=== PATIENT | female | born 1975 | race Caucasian/White ===

== ENCOUNTER → 2016-11-03 | Outpatient (CLI) | payer BC ==
[~2016-11-03] MED LIST: CALCTAB5 PO; IBUP600T44 PO; MAGNESIUM PO; PRCUNK PO; PRENTAB26 PO
--- NOTE | 2016-11-04 13:36 | MAMMOGRAPHY REPORT ---
BILATERAL DIGITAL SCREENING MAMMOGRAM TOMOSYNTHESIS WITH CAD: 11/03/2016 CLINICAL HISTORY: Routine screening. Patient has no complaints. TECHNIQUE: Breast tomosynthesis in addition to standard 2D mammography was performed. Current study was also evaluated with a Computer Aided Detection (CAD) system. COMPARISON: Comparison is made to exams dated: 10/30/2015 mammogram, 10/07/2013 mammogram, 09/24/2012 mammogram, 09/22/2011 mammogram, and 09/17/2011 mammogram - [facility]. BREAST COMPOSITION: The tissue of both breasts is heterogeneously dense, which may obscure small ma sses. FINDINGS: There are stable lymph nodes in each upper outer posterior breast and projecting over the pectoralis muscles on the MLO views. No new suspicious mass, architectural distortion or cluster of microcalcifications is seen. IMPRESSION: ACR BI-RADS CATEGORY 2: BENIGN There is no mammographic evidence of malignancy. A 1 year screening mammogram is recommended. The p atient will receive written notification of the results. Approximately 10% of breast cancers are not detected with mammography. A negative mammographic repor t should not delay biopsy if a clinically suggestive mass is present. Catherine Oconnell M.D. ay/:11/03/2016 16:24:48 Edge Grinder Machine: Liz ALAN(R)(M), [facility] letter sent: Normal 1/2 BI-RADS Code: ACR BI-RADS Category 2: Benign
== END | disposition home or self-care (01) ==
LOC: C.MAMM 09:12
PROVIDERS: ATTEND Obstetrics & Gynecology
DX: Z12.31 Encounter for screening mammogram for malignant neoplasm of breast (principal)

== ENCOUNTER → 2017-06-18 | Outpatient (CLI) | payer BC | END | disposition home or self-care (01) | LOC: C.PAPS 14:08 | PROVIDERS: ATTEND Obstetrics & Gynecology | DX: Z01.419 Encounter for gynecological examination (general) (routine) without abnormal findings (principal) ==

== ENCOUNTER → 2017-06-26 | Outpatient (CLI) | payer BC ==
[2017-06-26 09:37] LABS: BASO % 0.5 %; BASO ABS # 0.02 K/uL (0-0.2); COMPLETE YES; EOS % 3.1 %; HEMATOCRIT 33.7 % (37-47); LYMPH % 38.2 %; LYMPH ABS # 1.48 K/uL (1.2-3.4); MEAN CELL VOLUME 85.1 fL (80-100); MEAN CORPUSCULAR HEMOGLOBIN 28.3 pg (25-34); MEAN CORPUSCULAR HGB CONC 33.2 g/dl (32-36); MEAN PLATELET VOLUME 9.7 fL (7.4-10.4); MONO % 10.1 %; NEUT % 48.1 %; PLATELET COUNT 304 K/uL (130-400); RED BLOOD COUNT 3.96 M/uL (4.2-5.4); WHITE BLOOD COUNT 3.87 K/uL (4.8-10.8)
[2017-06-26 10:13] LABS: CHOLESTEROL/HDL RATIO 2.6; THYROID STIMULATING HORMONE 2.43 uIu/ml (0.300-4.500)
== END | disposition home or self-care (01) ==
LOC: C.LAB1850 08:45
PROVIDERS: ATTEND Obstetrics & Gynecology
DX: D64.9 Anemia, unspecified (principal); Z00.00 Encounter for general adult medical examination without abnormal findings; N92.0 Excessive and frequent menstruation with regular cycle

== ENCOUNTER → 2017-09-25 | Outpatient (CLI) | payer OTHER | END | disposition home or self-care (01) | LOC: C.PATHSPEC 15:50 | PROVIDERS: ATTEND Obstetrics & Gynecology | DX: N92.0 Excessive and frequent menstruation with regular cycle (principal) ==

== ENCOUNTER → 2017-11-04 | Outpatient (CLI) | payer OTHER ==
[~2017-11-04] MED LIST changes: -CALCTAB5 PO; +IBUP-1459 PO; -IBUP600T44 PO; -MAGNESIUM PO; -PRCUNK PO; -PRENTAB26 PO
--- NOTE | 2017-11-05 07:50 | MAMMOGRAPHY REPORT ---
BILATERAL DIGITAL SCREENING MAMMOGRAM TOMOSYNTHESIS WITH CAD: 11/04/2017 CLINICAL HISTORY: Routine screening. Patient has no complaints. TECHNIQUE: Breast tomosynthesis in addition to standard 2D mammography was performed. Current study was also evaluated with a Computer Aided Detection (CAD) system. COMPARISON: Comparison is made to exams dated: 11/03/2016 mammogram, 10/30/2015 mammogram, 10/26/2014 m ammogram, 10/07/2013 mammogram, 09/24/2012 mammogram, and 09/22/2011 ultrasound - [facility]. BREAST COMPOSITION: The tissue of both breasts is heterogeneously dense, which may obscure small mas ses. FINDINGS: No suspicious masses, calcifications, or areas of architectural distortion are noted in ei ther breast. There has been no significant interval change compared to prior exams. Left inferior br east asymmetry is stable compared to multiple prior exams including the 2012 exam and has the appeara nce of normal fibroglandular tissue on the tomosynthesis images. IMPRESSION: ACR BI-RADS CATEGORY 2: BENIGN There is no mammographic evidence of malignancy. A 1 year screening mammogram is recommended. The pa tient will receive written notification of the results. Approximately 10% of breast cancers are not detected with mammography. A negative mammographic report should not delay biopsy if a clinically suggestive mass is present. Amanda Anderson M.D. /:11/04/2017 11:46:44 Head Of Housekeeping: Krystyna MONIQUE)(Marianela), [facility] letter sent: Normal 1/2 BI-RADS Code: ACR BI-RADS Category 2: Benign
== END | disposition home or self-care (01) ==
LOC: C.MAMM 09:33
PROVIDERS: ATTEND Obstetrics & Gynecology
DX: Z12.31 Encounter for screening mammogram for malignant neoplasm of breast (principal)

== ENCOUNTER → 2017-11-05 | Outpatient (CLI) | payer OTHER ==
[2017-11-05 14:29] LABS: HEMATOCRIT 33.5 % (37-47); MEAN CELL VOLUME 84.2 fL (80-100); MEAN CORPUSCULAR HEMOGLOBIN 27.6 pg (25-34); MEAN CORPUSCULAR HGB CONC 32.8 g/dl (32-36); MEAN PLATELET VOLUME 9.9 fL (7.4-10.4); PLATELET COUNT 288 K/uL (130-400); RED CELL DISTRIBUTION WIDTH CV 16.8 % (11.5-14.5); RED CELL DISTRIBUTION WIDTH SD 51.1 fL (36.4-46.3); WHITE BLOOD COUNT 6.63 K/uL (4.8-10.8)
== END | disposition home or self-care (01) ==
LOC: C.LAB1850 12:43
PROVIDERS: ATTEND Obstetrics & Gynecology
DX: D64.9 Anemia, unspecified (principal)

== ENCOUNTER → 2017-11-11 | Day surgery (SDC) | payer OTHER ==
[2017-10-22 09:02] VITALS: Ht 162.6 cm; Wt 59.1 kg
[~2017-11-11] VITALS: Ht 162.6 cm; Wt 59.1 kg
[~2017-11-11] MED LIST changes: +ATROPINE SULFATE 0.1 MG/ML 5ML SYR IV PRN; +CHECK SCOPOLAMINE PATCH PLACEMENT SCH; +DEXAMETHASONE SOD INJ 4 MG/ML VIAL ONE; +EpHEDrine SULFATE INJ 50 MG/ML AMP IV PRN; +FENTANYL CITRATE INJ 50 MCG/1 ML 2 ML VIAL IV PRN; +FENTANYL CITRATE INJ 50 MCG/1 ML 2 ML VIAL ONE; +IBUPROFEN 200 MG TAB ONE; +IBUPROFEN 600 MG TAB PO PRN; +KETOROLAC TROMETHAMINE 30 MG/ML VIAL IV. PRN; +KETOROLAC TROMETHAMINE 30 MG/ML VIAL ONE; +LACTATED RINGER'S 1000ML 1,000 ML IV SCH; +LIDOCAINE HCL 2% 2 ML VIAL (20MG/ML) ONE; +MIDAZOLAM HCL 1 MG/ML 2ML VIAL ONE; +ONDANSETRON INJ 2 MG/ML 2 ML VIAL IV PRN; +ONDANSETRON INJ 2 MG/ML 2 ML VIAL ONE; +OXYCODONE/ACETAMINOPHEN 5-325 TAB PO PRN; +PROPOFOL IV EMULSION 10 MG/ML 20 ML VIAL IV ONE; +SCOPOLAMINE 1.5 MG TDSY TD ONE; +SCOPOLAMINE 1.5 MG TDSY TD SCH; +SODIUM CHLORIDE 0.9% 1000ML 1,000 ML IV SCH
--- NOTE | 2017-11-11 11:57 | History & Physical Bridge - [place] ---
H&P Re-Evaluation Bridge Note: I have examined the patient, reviewed the History & Physical and in the interval since the performance of the History & Physical I have noted the following changes of clinical significance: No changes noted
--- NOTE | 2017-11-11 13:07 | [facility] Post Operative Brief Note ---
Immediate Operative Summary Operative Date Nov 11, 2017. Pre-Operative Diagnosis Menorrhagia, anemia Post-Operative Diagnosis same Procedure(s) Performed D&C, Hysteroscopy, endometrial ablation with novasure--aborted. endometrial ablation with roller ball Surgeon Dr. Court Mancilla Account Development Associate Surgeon(s) 0 Estimated Blood Loss 2 Findings See Below (did not pass cavity assessment. roller bar ablation done. deficit of sorbitol 600cc, deficit was saline 35cc. cavity did have lesions. nl ostia bilaterally. ) uterus sounds to 10cm. cervical length 4cm. cavity width 4.7cm. Fluids (cc crystalloids) 1000 Specimens endometrial currettings Drains None Anesthesia Type General Complication(s) none Disposition Accompanied Pt To Recover: no Disposition: Recovery Room / PACU
--- NOTE | 2017-11-11 13:09 | Discharge Instructions ---
Discharge Instructions Date of Service Nov 11, 2017. Admission Reason for Admission: Menorrhagia Discharge Discharge Diagnosis / Problem: after surgery Discharge Goals Goal(s): Routine recovery after surgery Activity Recommendations Activity Limitations: as noted below . Instructions / Follow-Up Instructions / Follow-Up ACTIVITY RECOMMENDATIONS: * Avoid tampons, douching, hot tubs, pools, and intercourse until bleeding has stopped. * May shower as usual. * No strenuous activity for 24-48 hours. After 24-48 hours, you may do anything you feel like doing (driving and sports are okay). SPECIAL CARE INSTRUCTIONS: Special Diet: * Mild nausea may occur in the immediate post-operative period. * Take clear liquids such as tea, cola or bouillon until all nausea has subsided; you may then resume your normal diet. Special Care: * Light bleeding and vaginal spotting can last from a few days to 3-4 weeks. Call your doctor if bleeding becomes heavier than the heaviest part of your period. * Check your temperature twice a day for one week. If it goes above 100.4 degrees Fahrenheit (38.0 Celsius), notify your doctor. * Call your doctor's office for an appointment for 2-4 weeks after your surgery. FOLLOW-UP VISIT: Call your doctor's office for an appointment for 2-4 weeks after your surgery. Current Hospital Diet Patient's current hospital diet: Discharge Diet Recommended Diet: Regular Diet Procedures Procedures Performed: D&C, Hysteroscopy, endometrial ablation with novasure--aborted. endometrial ablation with roller ball Pending Studies Studies pending at discharge: yes List of pending studies: pathology Medical Emergencies . Who to Call and When: Medical Emergencies: If at any time you feel your situation is an emergency, please call 911 immediately. . Non-Emergent Contact Non-Emergency issues call your: [employer] Application Developer . . "Provider Documentation" section prepared by Dee Mancilla. .
--- NOTE | 2017-11-11 13:59 | OPERATIVE REPORT ---
DATE OF OPERATION: 11/11/2017 PREOPERATIVE DIAGNOSES: 1. Menorrhagia. 2. Anemia. POSTOPERATIVE DIAGNOSES: Same. PROCEDURES: 1. Dilatation and curettage. 2. Hysteroscopy. 3. Endometrial ablation with NovaSure device, aborted. 4. Endometrial ablation with roller bar. SURGEON: Dr. Dee Mancilla. CLOUD ADMINISTRATOR: None. IV FLUIDS: 1000 mL. ESTIMATED BLOOD LOSS: 2 mL. FINDINGS: Uterus quite retroverted. Uterus sounded to 10 cm with cervical length of 4 cm and therefore, cavity length of 6 cm. Cavity width 4.7 cm. Cavity itself normal appearing with normal tubal ostia bilaterally. Steep angle to the internal os into the uterine cavity downward and towards the patient's right. Cervix parous. The initial attempt at NovaSure was unsuccessful with the saline hysteroscopic fluid deficit of 35 mL. Ultimately, sorbitol fluid deficit 600 mL. INDICATIONS: A 42-year-old who has completed her childbearing with heavy vaginal bleeding to include a history of anemia, who desires surgical attempt at endometrial ablation. She underwent a preprocedure testing that was all benign and desired to proceed. DESCRIPTION OF PROCEDURE: The patient was taken to the operating room and identified. After adequate general anesthesia was obtained, she was placed in the dorsal lithotomy position and prepped and draped in the usual sterile fashion. The bladder was drained for clear yellow urine. A weighted speculum and anterior retractor were placed in the vagina to visualize the cervix. The cervix was grasped on its anterior lip with an Allis clamp. Initial cervical dilation was difficult. Using the hysteroscope, the angle of the cervical canal was noted. Then dilation took place with Hegar dilators to 21. The uterus was sounded for 10 cm. The diagnostic hysteroscope primed with saline media was gently placed through the cervical os into the uterine cavity with the findings as noted above. Evidence of some false passage was noted due to difficult dilation. The hysteroscope was then removed and the uterus was curettaged to a gritty consistency using a serrated curette and the specimen was sent. The cavity length was determined after the cervical length was determined. The NovaSure endometrial ablation device was readied. The device was gently placed into the uterine cavity and opened. The cavity width was determined. On 3 separate occasions, the cavity assessment failed. After the initial failure, leakage at the cervix was noted and suspected as the cause of device failure and therefore, the cervix was narrowed using clamps as well as a Vaseline gauze. After the third attempt and device failure, the hysteroscope was reintroduced and there was no evidence of perforation with normal distention of the cavity noted. Given this difficulty with the NovaSure device, its use was aborted. The operative hysteroscope with the roller bar was then utilized using blended cautery to cauterize the cavity after the fluid media was changed over to sorbitol. This was done sequentially. The fluid deficit was monitored closely. When she approached approximately 600 mL, the procedure was aborted. The diagnostic hysteroscope was reintroduced and the cavity was ablated to about 75%. A portion of the right anterior cavity had not been completed. At this point, the procedure was terminated. The vaginal instruments were all removed. The patient was returned to the supine position. She was awoken from anesthesia and transferred to the recovery room in stable condition. All sponge, lap and needle counts were correct x2. I attest to the content of the Intraoperative Record and any orders documented therein. Any exceptions are noted below. WILMAN
[2017-11-11 14:07] VITALS: TEMP 36.6
--- NOTE | 2017-11-11 14:22 | Anesthesia Progress Nt - [facility] ---
Anesthesia Post Op Note Date & Time Nov 11, 2017 at 14:21 Vital Signs Pain Intensity: 0 Vital Signs Past 12 Hours Date Time Temp Pulse Resp B/P (MAP) Pulse Ox O2 Delivery O2 Flow Rate FiO2 11/11/17 14:01 112/66 11/11/17 14:00 76 18 11/11/17 14:00 76 18 100 11/11/17 14:00 36.4 72 14 112/66 100 Room Air 11/11/17 13:56 112/67 11/11/17 13:55 79 13 11/11/17 13:55 83 13 100 11/11/17 13:50 77 14 121/68 100 11/11/17 13:50 77 14 11/11/17 13:45 77 13 11/11/17 13:45 78 13 119/70 100 11/11/17 13:41 118/67 11/11/17 13:40 77 19 100 11/11/17 13:40 76 19 11/11/17 13:36 135/73 11/11/17 13:35 86 15 100 11/11/17 13:35 87 15 11/11/17 13:30 91 24 11/11/17 13:30 91 24 121/82 100 11/11/17 13:25 90 14 11/11/17 13:25 90 14 127/78 100 11/11/17 13:21 130/79 11/11/17 13:20 36.5 92 16 130/79 100 Mask 6 11/11/17 13:20 96 11/11/17 13:20 96 100 11/11/17 11:15 36.8 81 18 98/67 (77) 97 Room Air Notes Mental Status: alert / awake / arousable, participated in evaluation Pt Amnestic to Procedure: Yes Nausea / Vomiting: adequately controlled Pain: adequately controlled Airway Patency, RR, SpO2: stable & adequate BP & HR: stable & adequate Hydration State: stable & adequate Anesthetic Complications: no major complications apparent
[2017-11-11 14:45] VITALS: BP 116/71; PULSE 66; O2SAT 100
== END | disposition home or self-care (01) ==
LOC: X.SURG 10:58
PROVIDERS: ATTEND Obstetrics & Gynecology
DX: N92.0 Excessive and frequent menstruation with regular cycle (principal); D64.9 Anemia, unspecified; Z80.3 Family history of malignant neoplasm of breast; Z83.3 Family history of diabetes mellitus; Z82.49 Family history of ischemic heart disease and other diseases of the circulatory system; Z87.891 Personal history of nicotine dependence; Z88.5 Allergy status to narcotic agent; Z91.048 Other nonmedicinal substance allergy status